=== PATIENT | female | born 1960 | race Caucasian/White ===

== ENCOUNTER 2023-05-18 07:48 | Emergency (ER) | payer BC, OTHER ==
[~2023-05-18] VITALS: Ht 170.2 cm; Wt 65.9 kg
[2023-05-18] MEDS ORDERED: SODIUM CHLORIDE 0.9% 1,000 ML IV ONE ×2 (08:00→09:30)
[2023-05-18 08:22] LABS: Basophils # (auto) 0 10 ^3/uL (0-0.2); Basophils % (auto) 0.5 % (0.0-2.0); Eosinophils # (auto) 0.1 10 ^3/uL (0-0.8); Eosinophils % (auto) 0.7 % (0.0-7.0); Hematocrit 44.8 % (36.0-46.0); Hemoglobin 15.1 g/dL (12.2-16.2); Lymphocytes # (auto) 0.9 10 ^3/uL (0.4-5.4); Lymphocytes % (auto) 10.9 % (10.0-50.0); Mean Corpuscular Hemoglobin 30.2 pg (28.0-32.0); Mean Corpuscular Hgb Conc. 33.6 g/dL (32.0-36.0); Mean Corpuscular Volume 89.8 fL (80.0-100.0); Monocytes # (auto) 0.6 10 ^3/uL (0-1.3); Monocytes % (auto) 6.9 % (0.0-12.0); Neutrophils # (auto) 6.6 10 ^3/uL (1.6-8.6); Nucleated Red Blood Cells % 0.1 %; Red Blood Cells 4.99 10^6/uL (4.0-5.20); Red Cell Distribution Width 13.1 % (11.8-14.3); White Blood Cell 8.1 10^3/uL (4.4-10.8)
[2023-05-18 08:40] LABS: Chloride 105 mmol/L (98-107); Potassium 3.5 mmol/L (3.5-5.1); Sodium 134 mmol/L (136-145)
[2023-05-18 08:41] LABS: Anion Gap 11 (5-15); Calcium 9.8 mg/dL (8.7-10.4); Carbon Dioxide 18 mmol/L (20-30)
[2023-05-18 08:46] LABS: BUN/Creatinine Ratio 8.6 (10.0-20.0); Blood Urea Nitrogen 7 mg/dL (9-23); Glucose 113 mg/dL (74-106)
[2023-05-18 09:01] LABS: Lactic Acid w/Reflex 2.2 mmol/L (0.4-2.0)
[2023-05-18] MEDS ORDERED: AZITHROMYCIN 500MG/ 250ML 250 ML IV ONE (09:45)
[2023-05-18 10:23] LABS: COVID19 ANTIGEN SOFIA FIA NEGATIVE (NEGATIVE)
[2023-05-18 10:24] VITALS: BP 151/81; PULSE 86; RESP 14; TEMP 98; O2SAT 100
[2023-05-18 10:45] LABS: Urine Epithelial Cast None Seen /hpf (<5)
[2023-05-18 11:14] LABS: Urine Bacteria NONE SEEN /hpf (None Seen); Urine Blood Negative /uL (Negative); Urine Clarity Clear (Clear); Urine Color Colorless (Yellow); Urine Hyaline Cast FEW /lpf (0 - 2); Urine Protein, UAD Negative (Negative); Urine Specific Gravity 1.007 (1.001-1.035); Urine Urobilinogen Normal (Negative); Urine WBC 2 /hpf (0 - 5)
[2023-05-18] MEDS ORDERED: NITR-87 PO (11:23)
[2023-05-18] MEDS ORDERED: NITROFURANTOIN 100 mg CAP PO ONE (11:30)
== END 2023-05-18 14:02 | disposition home or self-care (01) ==
LOC: ER 07:48 → EDBD 07:48 → ER 11:24
DX: N39.0 Urinary tract infection, site not specified (principal); R53.1 Weakness; R06.02 Shortness of breath; R19.7 Diarrhea, unspecified; Z98.890 Other specified postprocedural states; Z79.899 Other long term (current) drug therapy; Z20.822 Contact with and (suspected) exposure to COVID-19
CPT/HCPCS: 36415; 71045; 80048; 81001; 83605; 85025; 87040; 87426; 93005; 96365; 96366; 99285; J0456